=== PATIENT | male | born 1960 | race Caucasian/White ===

== ENCOUNTER 2021-10-11 09:36 | Emergency (ER) | payer MEDICAID ==
[~2021-10-11] VITALS: Ht 177.8 cm; Wt 113.0 kg
[2021-10-11 09:53] VITALS: BP 139/63
[2021-10-11] MEDS ORDERED: SEMA3TAB4 PO (10:31)
[2021-10-11] MEDS ORDERED: FLUO20CA33 MT (10:31)
[2021-10-11] MEDS ORDERED: INSU100I28 SQ (10:31)
[2021-10-11] MEDS ORDERED: CHLO50TA MT (10:31)
[2021-10-11] MEDS ORDERED: INSU100V37 SQ (10:31)
== END 2021-10-11 10:41 | disposition home or self-care (01) ==
LOC: ER 09:56
DX: Z76.0 Encounter for issue of repeat prescription (principal); E11.9 Type 2 diabetes mellitus without complications; I10 Essential (primary) hypertension; E78.00 Pure hypercholesterolemia, unspecified; Z79.4 Long term (current) use of insulin
CPT/HCPCS: 99283

== ENCOUNTER 2021-10-11 13:23 | Emergency (ER) | payer MEDICAID ==
[~2021-10-11] VITALS: Ht 177.8 cm; Wt 114.0 kg
[~2021-10-11 13:23] MED LIST: CHLO50TA MT; FLUO20CA33 MT; INSU100I28 SQ; INSU100V37 SQ; SEMA3TAB4 PO
[2021-10-11 13:35] VITALS: BP 144/71
== END 2021-10-11 14:48 | disposition home or self-care (01) ==
LOC: ER 13:23
DX: Z76.0 Encounter for issue of repeat prescription (principal); E11.9 Type 2 diabetes mellitus without complications; I10 Essential (primary) hypertension; E78.00 Pure hypercholesterolemia, unspecified; Z79.4 Long term (current) use of insulin
CPT/HCPCS: 99281